=== PATIENT | male | born 1995 | race Caucasian/White ===

== ENCOUNTER 2019-11-14 12:29 | Emergency (ER) | payer OTHER, SELFPAY ==
[2019-11-14] MEDS ORDERED: LIDOCAINE 1% MPF 5 ML VIAL ONE (12:55)
--- NOTE | 2019-11-14 14:00 | RAD REPORT ---
EXAM DESCRIPTION: RAD - Tib Fib Right - 11/14/2019 1:47 pm CLINICAL HISTORY: PAIN, trauma, laceration COMPARISON: No comparisons FINDINGS: No fracture is identified. There is no dislocation or periosteal reaction noted. No acute or suspicious bony finding. Anterior soft tissue wound is present midshaft level. No foreign body. IMPRESSION: No acute bone finding. No foreign body.
--- NOTE | 2019-11-14 14:04 | ER ---
Nurse's Notes [facility] Name: Guanakito Foley Age: 24 yrs Sex: Male : 1995 Arrival Date: 11/14/2019 Time: 12:31 Bed 5 Private MD: Diagnosis: Laceration without foreign body, right lower leg Presentation: 11/13 12:31 Chief complaint: EMS states: was on a boat and stepped incorrectly and scrapped right em culp on metal step, happened about 45 minutes ago, 2-3 cm laceration noted, dressed and bandaged, moderate amount of blood noted, tetanus up to date. Coronavirus screen: Proceed with normal triage. Ebola Screen: Patient negative for fever greater than or equal to 101.5 degrees Fahrenheit, and additional compatible Ebola Virus Disease symptoms Patient denies exposure to infectious person. Patient denies travel to an Ebola-affected area in the 21 days before illness onset. No symptoms or risks identified at this time. Complicating Factors: There are no complicating factors for this patient. Initial Sepsis Screen: Does the patient meet any 2 criteria? HR > 90 bpm. Does the patient have a suspected source of infection? Yes: Skin breakdown/wound. Risk Assessment: Do you want to hurt yourself or someone else? Patient reports no desire to harm self or others. Onset of symptoms was November 14, 2019. 12:31 Method Of Arrival: EMS: [facility] em 12:31 Acuity: SWATI 4 em Triage Assessment: 12:38 Injury Description: Laceration sustained to right culp is clean, jagged, 0.5 to 2.5 cm em long, was sustained 30-60 minutes ago. is bleeding moderately. Historical: - Allergies: 12:38 amoxicillin; em - Home Meds: 12:38 None [Active]; em - PMHx: 12:38 None; em - PSHx: 12:38 None; em - Immunization history:: Adult Immunizations up to date, Last tetanus immunization: up to date. - Social history:: Smoking status: Patient denies any tobacco usage or history of. Screenin:39 Abuse screen: Denies threats or abuse. Nutritional screening: No deficits noted. em Tuberculosis screening: No symptoms or risk factors identified. Fall Risk None identified. Assessment: 12:31 General: Appears in no apparent distress. comfortable, Behavior is calm, cooperative, em appropriate for age. Pain: Complains of pain in right culp Pain currently is 3 out of 10 on a pain scale. Neuro: Level of Consciousness is awake, alert, obeys commands, Oriented to person, place, time, situation, Appropriate for age. Cardiovascular: Capillary refill < 3 seconds Patient's skin is warm and dry. Respiratory: Airway is patent Respiratory effort is even, unlabored, Respiratory pattern is regular, symmetrical. Musculoskeletal: Circulation, motion, and sensation intact. Capillary refill < 3 seconds. Injury Description: Laceration sustained to right culp is contaminated, 0.5 to 2.5 cm long, was sustained 30-60 minutes ago. is bleeding moderately. 12:31 Derm: Skin is intact, is healthy with good turgor, Skin is pink, warm \T\ dry. em 13:37 Reassessment: Patient appears in no apparent distress at this time. Patient and/or em family updated on plan of care and expected duration. Pain level reassessed. Patient is alert, oriented x 3, equal unlabored respirations, skin warm/dry/pink. Vital Signs: 12:31 BP 147 / 103; Pulse 99; Resp 18; Temp 98.4; Pulse Ox 100% on R/A; Weight 80.74 kg; em Height 5 ft. 7 in. (170.18 cm); Pain 3/10; 14:20 BP 141 / 101; Pulse 67; Resp 16; Pulse Ox 99% on R/A; em 12:31 Body Mass Index 27.88 (80.74 kg, 170.18 cm) em ED Course: 12:31 Patient arrived in ED. em 12:32 Levy Skinner NP is PHCP. pm1 12:32 Gamal Weldon MD is Attending Physician. pm1 12:37 Triage completed. em 12:39 Arm band placed on. em 12:39 Patient has correct armband on for positive identification. Bed in low position. Call em light in reach. 12:40 Ameya Altamirano, AVINASH is Primary Nurse. em 13:47 Tib Fib Right XRAY In Process Unspecified. EDMS 13:55 Assist provider with laceration repair on right culp that was between 2.6 to 7.5 cm em using sutures. Set up tray. Performed by Levy Skinner NP Dressed with Adaptic, Ching, Neosporin, Patient tolerated well. 14:19 Patient did not have IV access during this emergency room visit. em Administered Medications: 13:37 Drug: Lidocaine (1 %) 5 ml {Note: administered by QUEENIE Lockett.} Volume: 5 ml; Route: em Infiltration; 13:45 Follow up: Response: No adverse reaction; Pain is decreased em 14:18 Drug: Doxycycline 100 mg Route: PO; em 14:30 Follow up: Response: No adverse reaction em Outcome: 14:03 Discharge ordered by MD. pm1 14:30 Discharged to home ambulatory. jl7 14:30 Condition: good 14:30 Discharge instructions given to patient, Instructed on discharge instructions, follow up and referral plans. medication usage, wound care, Demonstrated understanding of instructions, follow-up care, medications, wound care, Prescriptions given X 1. 14:31 Patient left the ED. jl7 Signatures: Dispatcher [employer] EDAmeya Carroll RN RN em Marinas, Patrick, NP IRON ASSORTER pm1 Gavi Garcia RN RN jl7 Corrections: (The following items were deleted from the chart) 14:19 12:31 Chief complaint: EMS states: was on a boat and stepped on incorrectly and em scrapped right culp, happened about 45 minutes ago, 2-3 cm laceration noted, dressed and bandaged, moderate amount of blood noted, tetanus up to date em
--- NOTE | 2019-11-14 14:04 | EDPHYS ---
Physician Documentation [facility] Name: Guanakito Foley Age: 24 yrs Sex: Male : 1995 Arrival Date: 11/14/2019 Time: 12:31 Bed 5 Private MD: ED Physician Gamal Weldon HPI: 11/13 12:45 This 24 yrs old Male presents to ER via EMS with complaints of Laceration To pm1 Leg. 12:45 The patient has a laceration related to: Slipped on dock occurred outdoors. The pm1 laceration(s) is(are) located on the right culp. Onset: The symptoms/episode began/occurred just prior to arrival. Associated signs and symptoms: Pertinent negatives: deformity, numbness distal to injury, suspected foreign body. The patient has not experienced similar symptoms in the past. The patient has not recently seen a physician, Reports tetanus up to date, less than 5 years. 12:45 Patient cut his leg on the step of the boat. pm1 Historical: - Allergies: 12:38 amoxicillin; em - Home Meds: 12:38 None [Active]; em - PMHx: 12:38 None; em - PSHx: 12:38 None; em - Immunization history:: Adult Immunizations up to date, Last tetanus immunization: up to date. - Social history:: Smoking status: Patient denies any tobacco usage or history of. ROS: 12:45 Constitutional: Negative for fever, chills, and weight loss, Neck: Negative for injury, pm1 pain, and swelling, Cardiovascular: Negative for chest pain, palpitations, and edema, Respiratory: Negative for shortness of breath, cough, wheezing, and pleuritic chest pain, Abdomen/GI: Negative for abdominal pain, nausea, vomiting, diarrhea, and constipation, Back: Negative for injury and pain. 12:45 Neuro: Negative for headache, weakness, numbness, tingling, and seizure. 12:45 MS/extremity: Positive for laceration, pain, of the right culp, Negative for decreased range of motion, deformity. 12:45 Skin: Positive for laceration(s), of the right culp. Exam: 12:45 Constitutional: This is a well developed, well nourished patient who is awake, alert, pm1 and in no acute distress. Head/Face: Normocephalic, atraumatic. Neck: Trachea midline, no thyromegaly or masses palpated, and no cervical lymphadenopathy. Supple, full range of motion without nuchal rigidity, or vertebral point tenderness. No Meningismus. Chest/axilla: Normal chest wall appearance and motion. Nontender with no deformity. No lesions are appreciated. 12:45 Cardiovascular: Exam negative for acute changes, Rate: normal, Rhythm: regular, Pulses: no pulse deficits are appreciated. 12:45 Respiratory: Exam negative for acute changes, respiratory distress, shortness of breath. 12:45 Musculoskeletal/extremity: Extremities: grossly normal except: noted in the right culp: laceration. 12:45 Skin: Appearance: normal except for affected area, injury, laceration(s), the wound is approximately 2.5 cm(s), with a depth of 1 cm(s), of the right culp, that can be described as clean, no foreign body, irregular, with mild bleeding. Vital Signs: 12:31 BP 147 / 103; Pulse 99; Resp 18; Temp 98.4; Pulse Ox 100% on R/A; Weight 80.74 kg; em Height 5 ft. 7 in. (170.18 cm); Pain 3/10; 14:20 BP 141 / 101; Pulse 67; Resp 16; Pulse Ox 99% on R/A; em 12:31 Body Mass Index 27.88 (80.74 kg, 170.18 cm) em Laceration: 15:46 Wound Repair of 2.5cm ( 1.0in ) subcutaneous laceration to right culp. Irregularly pm1 shaped.. Distal neuro/vascular/tendon intact. Anesthesia: Local anesthetic administered with 4 mls of 1% lidocaine. Wound prep: Extensive cleansing with betadine with hibiclenz by ks, Wound irrigation with saline by ks, Wound explored extensively, Copious irrigation. Skin closed with 6 2-0 Prolene using simple sutures and sterile technique. Dressed with Neosporin, 4x4's. Patient tolerated well. MDM: 12:33 Patient medically screened. pm1 14:02 Data reviewed: vital signs. Data interpreted: Pulse oximetry: on room air is 100 %. pm1 Interpretation: normal. Counseling: I had a detailed discussion with the patient and/or guardian regarding: the historical points, exam findings, and any diagnostic results supporting the discharge/admit diagnosis, radiology results, the need for outpatient follow up, suture removal in 10-14 days, to return to the emergency department if symptoms worsen or persist or if there are any questions or concerns that arise at home. 11/13 12:33 Order name: Tib Fib Right XRAY; Complete Time: 14:02 pm1 11/13 12:33 Order name: Prolene, Sutures; Complete Time: 12:40 pm1 11/13 12:33 Order name: Dressing - Wound; Complete Time: 14:05 pm1 11/13 12:33 Order name: Gloves, Sterile; Complete Time: 14:05 pm1 11/13 12:33 Order name: Setup Suture Tray; Complete Time: 12:40 pm1 Administered Medications: 13:37 Drug: Lidocaine (1 %) 5 ml {Note: administered by QUEENIE Lockett.} Volume: 5 ml; Route: em Infiltration; 13:45 Follow up: Response: No adverse reaction; Pain is decreased em 14:18 Drug: Doxycycline 100 mg Route: PO; em 14:30 Follow up: Response: No adverse reaction em Disposition: 11/14/19 14:03 Discharged to Home. Impression: Laceration without foreign body, right lower leg. - Condition is Stable. - Discharge Instructions: Laceration Care, Adult. - Prescriptions for Doxycycline Hyclate 100 mg Oral Tablet - take 1 tablet by ORAL route every 12 hours; 20 tablet. - Medication Reconciliation Form, Thank You Letter, Antibiotic Education, Prescription Opioid Use form. - Follow up: Emergency Department; When: As needed; Reason: Worsening of condition. Follow up: Private Physician; When: 2 - 3 days; Reason: Recheck today's complaints, Continuance of care, Re-evaluation by your physician. - Problem is new. - Symptoms have improved. Addendum: 11/16/2019 20:13 Co-signature as Attending Physician, Gamal Weldon MD I agree with the assessment and c jenkins plan of care. Signatures: Dispatcher [employer] Gamal Devine MD MD cha Munoz, Edgar, RN RN em Levy Skinner NP SOAKERS SUPERVISOR pm1 Gavi Garcia RN RN jl7 Corrections: (The following items were deleted from the chart) 11/13 14:31 14:03 11/14/2019 14:03 Discharged to Home. Impression: Laceration without foreign body, jl7 right lower leg. Condition is Stable. Forms are Medication Reconciliation Form, Thank You Letter, Antibiotic Education, Prescription Opioid Use. Follow up: Emergency Department; When: As needed; Reason: Worsening of condition. Follow up: Private Physician; When: 2 - 3 days; Reason: Recheck today's complaints, Continuance of care, Re-evaluation by your physician. Problem is new. Symptoms have improved. pm1
[2019-11-14] MEDS ORDERED: DOXYCYCLINE 100 MG CAP PO ONE (14:15)
[2019-11-14 14:36] VITALS: TEMP 98.4
[2019-11-14 14:37] VITALS: BP 141/101; O2SAT 99
== END 2019-11-14 14:31 | disposition home or self-care (01) ==
LOC: ER 12:29 → EDBD 12:29 → ER 14:31
PROC: 0JQN0ZZ Repair Right Lower Leg Subcutaneous Tissue and Fascia, Open Approach (ICD-10-PCS; principal; 2019-11-14)
DX: S81.811A Laceration without foreign body, right lower leg, initial encounter (principal); W01.198A Fall on same level from slipping, tripping and stumbling with subsequent striking against other object, initial encounter; Y93.89 Activity, other specified; Y92.89 Other specified places as the place of occurrence of the external cause; Z88.1 Allergy status to other antibiotic agents
CPT/HCPCS: 99284

== ENCOUNTER 2019-11-27 10:55 | Emergency (ER) | payer OTHER ==
--- NOTE | 2019-11-27 12:07 | ER ---
Nurse's Notes [facility] Name: Guanakito Foley Age: 24 yrs Sex: Male : 1995 Arrival Date: 11/27/2019 Time: 11:00 Bed 16 Private MD: Diagnosis: Encounter for removal of sutures Presentation: 11/26 11:34 Chief complaint: Patient states: needs sutures removed from RLE, sutures were placed sv here. Coronavirus screen: Proceed with normal triage. Patient denies a cough. Patient denies shortness of breath or difficulty breathing. Patient denies measured and/or subjective temperature greater than 100.4F prior to today's visit. Patient denies travel on a cruise ship or to a country the [facility] currently lists as an affected area. Patient denies contact with known and/or suspected case of COVID-19. Ebola Screen: No symptoms or risks identified at this time. Risk Assessment: Do you want to hurt yourself or someone else? Patient reports no desire to harm self or others. Onset of symptoms was November 27, 2019. 11:34 Method Of Arrival: Ambulatory sv 11:34 Acuity: SWATI 4 sv 11:35 Initial Sepsis Screen: Does the patient meet any 2 criteria? No. Patient's initial sv sepsis screen is negative. Does the patient have a suspected source of infection? No. Patient's initial sepsis screen is negative. Triage Assessment: 11:34 General: Appears in no apparent distress. comfortable, Behavior is calm, cooperative, sv appropriate for age. Pain: Denies pain. Neuro: Level of Consciousness is awake, alert, obeys commands, Oriented to person, place, time, situation, Gait is steady. Respiratory: Airway is patent Respiratory effort is even, unlabored. Derm: Skin is pink, warm \T\ dry. Pt has 6 sutures to the RLE. Historical: - Allergies: 11:35 Amoxicillin; sv - PMHx: 11:35 None; sv - PSHx: 11:35 None; sv - Immunization history:: Adult Immunizations up to date. - Social history:: Smoking status: . Screenin:35 Abuse screen: Denies threats or abuse. Denies injuries from another. Nutritional sv screening: No deficits noted. Tuberculosis screening: No symptoms or risk factors identified. Fall Risk None identified. Assessment: 12:22 Reassessment: Patient appears in no apparent distress at this time. No changes from previously documented assessment. Patient and/or family updated on plan of care and expected duration. Pain level reassessed. Patient is alert, oriented x 3, equal unlabored respirations, skin warm/dry/pink. Vital Signs: 11:35 BP 129 / 80; Pulse 65; Resp 16; Pulse Ox 99% ; Weight 80.74 kg; Height 5 ft. 7 in. sv (170.18 cm); Pain 0/10; 11:35 Body Mass Index 27.88 (80.74 kg, 170.18 cm) sv ED Course: 11:00 Patient arrived in ED. mr 11:24 Douglas Treadwell PA is PHCP. [facility] 11:24 Tremaine Bae MD is Attending Physician. [facility] 11:34 Triage completed. sv 11:35 Arm band placed on. sv 11:35 Patient has correct armband on for positive identification. Bed in low position. Call sv light in reach. 11:45 Radha Levin RN is Primary Nurse. sv 11:55 Sutures removed to RLE by Douglas DIMAS. Patient did not have IV access during this emergency sv room visit. Administered Medications: No medications were administered Outcome: 12:06 Discharge ordered by . [facility] 12:23 Discharged to home ambulatory. sv 12:23 Condition: stable 12:23 Discharge instructions given to patient, Instructed on discharge instructions, follow up and referral plans. Demonstrated understanding of instructions, follow-up care. 12:23 Patient left the ED. sv Signatures: Radha Levin RN RN Douglas Treadwell PA PA jmm RiveraIla mr Corrections: (The following items were deleted from the chart) 11:37 11:35 Resp 16bpm; Pulse Ox 99%; sv sv
--- NOTE | 2019-11-27 12:07 | EDPHYS ---
Physician Documentation [facility] Name: Guanakito Foley Age: 24 yrs Sex: Male : 1995 Arrival Date: 11/27/2019 Time: 11:00 Bed 16 Private MD: ED Physician Tremaine Bae HPI: 11/26 11:58 This 24 yrs old Male presents to ER via Ambulatory with complaints of Suture jmm Removal. 11:58 The patient has sutures on the right leg. Previous treatment: 13 days prior. jmm Sutures/roxy progress: The patient has no c/o's. The wound is well-healing with no redness, swelling, discharge, or dehiscence reported. Historical: - Allergies: 11:35 Amoxicillin; sv - PMHx: 11:35 None; sv - PSHx: 11:35 None; sv - Immunization history:: Adult Immunizations up to date. - Social history:: Smoking status: . ROS: 11:58 Constitutional: Negative for fever, chills, and weight loss, Cardiovascular: Negative jmm for chest pain, palpitations, and edema, Respiratory: Negative for shortness of breath, cough, wheezing, and pleuritic chest pain. 11:58 MS/extremity: Positive for laceration. 11:58 Skin: Positive for laceration(s). 11:58 All other systems are negative. Exam: 11:58 Constitutional: This is a well developed, well nourished patient who is awake, alert, jmm and in no acute distress. Head/Face: atraumatic. Eyes: EOMI, no conjunctival erythema appreciated ENT: Moist Mucus Membranes Neck: Trachea midline, Supple Chest/axilla: Normal chest wall appearance and motion. Cardiovascular: Regular rate and rhythm. No edema appreciated Respiratory: Normal respirations, no respiratory distress appreciated Abdomen/GI: Non distended, soft Back: Normal ROM 11:58 Skin: laceration noted to the right lower extremity, non tender to palpation, mild erythema noted, no purulent drainage. 11:58 Neuro: Orientation: is normal, Mentation: is normal, Memory: is normal. 11:58 Psych: Behavior/mood is pleasant, cooperative. Vital Signs: 11:35 BP 129 / 80; Pulse 65; Resp 16; Pulse Ox 99% ; Weight 80.74 kg; Height 5 ft. 7 in. sv (170.18 cm); Pain 0/10; 11:35 Body Mass Index 27.88 (80.74 kg, 170.18 cm) sv Procedures: 12:00 Suture/Staple removal: Removed 6 sutures, from right leg, site appears reddened, abdifatah Patient tolerated well. MDM: 11:53 Patient medically screened. [facility] 12:00 Data reviewed: vital signs, nurses notes. Counseling: I had a detailed discussion with abdifatah the patient and/or guardian regarding: the historical points, exam findings, and any diagnostic results supporting the discharge/admit diagnosis, the need for outpatient follow up, to return to the emergency department if symptoms worsen or persist or if there are any questions or concerns that arise at home. 12:00 ED course: Patient is advised to follow up with pcp and otherwise given strict return [facility] precautions. Patient understood and agrees with the plan of care. . Administered Medications: No medications were administered Disposition: 19:31 Co-signature as Attending Physician, Tremaine Bae MD. mh7 Disposition: 11/27/19 12:06 Discharged to Home. Impression: Encounter for removal of sutures. - Condition is Stable. - Discharge Instructions: Suture Removal, Care After. - Medication Reconciliation Form, Thank You Letter, Antibiotic Education, Prescription Opioid Use form. - Follow up: Private Physician; When: As needed; Reason: Recheck today's complaints, Continuance of care, Re-evaluation by your physician. Signatures: Radha Levin RN RN sv Mickail, Joel, PA PA jmm Holmes, Maurice, MD MD mh7 Corrections: (The following items were deleted from the chart) 12:23 12:06 11/27/2019 12:06 Discharged to Home. Impression: Encounter for removal of sv sutures. Condition is Stable. Forms are Medication Reconciliation Form, Thank You Letter, Antibiotic Education, Prescription Opioid Use. Follow up: Private Physician; When: As needed; Reason: Recheck today's complaints, Continuance of care, Re-evaluation by your physician. abdifatah
[2019-11-27 12:30] VITALS: BP 129/80; O2SAT 99
== END 2019-11-27 12:23 | disposition home or self-care (01) ==
LOC: ER 10:55
DX: Z48.02 Encounter for removal of sutures (principal)
CPT/HCPCS: 99281

== ENCOUNTER 2019-12-13 13:10 | Emergency (ER) | payer OTHER ==
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
[2019-12-13 14:06] VITALS: BP 143/92; TEMP 98.5; O2SAT 96
[2019-12-16 11:48] LABS: HBsAG Nonreactive (Nonreactive)
[2019-12-16 15:48] LABS: HIV AG/AB 4TH GEN Non-reactive (Non-reactive)
== END 2019-12-13 14:00 | disposition home or self-care (01) ==
LOC: ER 13:10
DX: Z77.21 Contact with and (suspected) exposure to potentially hazardous body fluids (principal)
CPT/HCPCS: 86705; 86803; 87340; 87389; 99283